=== PATIENT | male | born 1975 | race Caucasian/White ===

== ENCOUNTER 2018-08-24 15:52 | Emergency (ER) | payer OTHER, SELFPAY ==
[~2018-08-24] VITALS: Ht 190.5 cm; Wt 161.1 kg
[~2018-08-24 15:52] MED LIST: ARIP15TA3; TOPI15CA4; adderall
[2018-08-24 16:02] VITALS: BP 141/81
[2018-08-24 17:06] LABS: INTERNATIONAL NORMALIZED RATIO 0.95 (0.93-1.1)
[2018-08-24 17:08] LABS: ALBUMIN 3.5 g/dL (3.4-5.0); ANION GAP 5 mmol/L (5-15); CHLORIDE 109 mmol/L (98-107)
[2018-08-24 17:24] LABS: BASOPHILS # (AUTO) 0.04 x10^3/uL (0-0.1); BASOPHILS % (AUTO) 0 % (0-1); EOSINOPHILS # (AUTO) 0.23 x10^3/uL (0-0.4); EOSINOPHILS % (AUTO) 2 % (1-7); LYMPHOCYTES # (AUTO) 2.04 x10^3/uL (1-3.4); LYMPHOCYTES % (AUTO) 20 % (22-44); MD NO; MEAN CORPUSCULAR HEMOGLOBIN 28.1 pg (27.5-34.5); MEAN CORPUSCULAR HGB CONC 32.2 g/dL (33.2-36.2); MEAN CORPUSCULAR VOLUME 87.3 fL (81-97); MEAN PLATELET VOLUME 7.9 fL (7.4-10.4); MONOCYTES # (AUTO) 0.67 x10^3/uL (0.2-0.8); MONOCYTES % (AUTO) 7 % (2-9); NEUTROPHILS # (AUTO) 7.26 x10^3/uL (1.8-6.8); NEUTROPHILS % (AUTO) 71 % (42-75); PLATELET COUNT 337 x10^3/uL (130-400); RED BLOOD COUNT 4.86 x10^6/uL (4.38-5.82); RED CELL DISTRIBUTION WIDTH 14.7 % (9.4-14.8)
[2018-08-24] MEDS ORDERED: CEFAZOLIN 1,000 MG ONE (18:20)
[2018-08-24] MEDS ORDERED: CEFAZOLIN 1,000 MG IM ONE (18:30)
== END 2018-08-24 18:50 | disposition home or self-care (01) ==
LOC: ED 17:42
DX: L03.115 Cellulitis of right lower limb (principal); L03.116 Cellulitis of left lower limb
CPT/HCPCS: 36415; 80048; 82040; 85025; 85610; 85730; 93970; 96372; 99284; J0690